=== PATIENT | male | born 1955 | race Caucasian/White ===

== ENCOUNTER 2019-04-05 21:32 | Emergency (ER) | payer BC ==
[~2019-04-05] VITALS: Ht 180.3 cm; Wt 90.7 kg
[2019-04-05 21:35] VITALS: BP 118/78
[2019-04-05] MEDS ORDERED: LIDOCAINE WITH 8.4% SOD BICARB 3 ML DISP.SYRIN. INJ ONE (22:15)
[2019-04-05] MEDS ORDERED: DIPHTH,PERTUSS(ACELL),TET TOX 0.5 ML DISP.SYRIN. VAX IM ONE (22:15)
[2019-04-05] MEDS ORDERED: GELATIN SPONGE SIZE 12-7MM SPONGE. TP ONE (22:15)
[2019-04-05] MEDS ORDERED: HYDROcodone/APAP 5/325MG 1 TAB TABLET PO ONE (22:30)
[2019-04-05] MEDS ORDERED: BUPIVACAINE MPF 0.5% 30 ML VIAL. INJ ONE (22:45)
[2019-04-05] MEDS ORDERED: PIPERACILLIN/TAZOBACTAM 3.375 GM in IV NORMAL SALINE 50ML 50 ML IV ONE (22:45)
[2019-04-06] MEDS ORDERED: CEPH500T PO (00:25)
[2019-04-06] MEDS ORDERED: HYDR-3164 PO (00:25)
--- NOTE | 2019-04-06 00:26 | PHYS DOC ---
Past Medical History Past Medical History: No Pertinent History (MANUELITO AGUILERA APRN) Past Surgical History: Cholecystectomy (MANUELITO AGUILERA APRN) Alcohol Use: None Drug Use: None (MANUELITO AGUILERA APRN) Attending Signature I have participated in the care of this patient and I have reviewed and agree with all pertinent clinical information above including history, exam, and recommendations. (TABATHA SCHMITZ MD) Adult General Chief Complaint Chief Complaint: LACERATION/AVULSION HPI HPI Patient is a 63 year old male who presents with right thumb injury, patient states he was working on his car with a olayinka, he states the olayinka pinched his right thumb. He is right-handed. (MANUELITO AGUILERA APRN) Review of Systems Review of Systems Constitutional: Denies fever or chills [] Musculoskeletal: Reports right thumb injury Integument: Denies rash or skin lesions [] Neurologic: Denies headache, focal weakness or sensory changes [] All other systems were reviewed and found to be within normal limits, except as documented in this note. (MANUELITO AGUILERA APRN) Current Medications Current Medications Current Medications Medications (Trade) Dose Ordered Sig/Claritza Start Time Stop Time Status Last Admin Dose Admin Acetaminophen/ Hydrocodone Bitart (Lortab 5/325) 1 tab 1X ONCE 04/05/19 22:30 04/05/19 22:31 DC 04/05/19 22:44 1 TAB Bupivacaine HCl (Sensorcaine Mpf 0.5%) 30 ml 1X ONCE 04/05/19 22:45 04/05/19 22:46 DC 04/05/19 22:45 30 ML Diphtheria/ Tetanus/Acell Pertussis (Boostrix) 0.5 ml ONCE ONCE 04/05/19 22:15 04/05/19 22:16 DC 04/05/19 22:45 0.5 ML Gelatin (Gelfoam Size 12-7mm) 1 each 1X ONCE 04/05/19 22:15 04/05/19 22:16 DC 04/05/19 22:45 1 EACH Lidocaine HCl (Buffered Lidocaine 1%) 3 ml 1X ONCE 04/05/19 22:15 04/05/19 22:51 DC Piperacillin Sod/ Tazobactam Sod 3.375 gm/Sodium Chloride 50 ml @ 100 mls/hr 1X ONCE 04/05/19 22:45 04/05/19 23:14 DC 04/05/19 22:43 100 MLS/HR (TABATHA SCHMITZ MD) Allergies Allergies Allergies Coded Allergies Type Severity Reaction Last Updated Verified No Known Drug Allergies 04/05/19 No (TABATHA SCHMITZ MD) Physical Exam Physical Exam Constitutional: Well developed, well nourished, no acute distress, non-toxic appearance. [] Skin: Warm, dry, no erythema, no rash. [] Back: No tenderness, no CVA tenderness. [] Extremities: Right thumb with no obvious gross deformity. There is 2 very superficial lacerations on the lateral aspect of the right thumb beside the nail bed, there is another laceration on the right medial thumb distal and beside th e nail bed approximately 1 cm. The nail bed is not disrupted. Adequate radius sensation to the right thumb. +2 right radial pulse. Cap refill less than 2 seconds the right thumb. Neurologic: Alert and oriented X 3, normal motor function, normal sensory function, no focal deficits noted. [] Psychologic: Affect normal, judgement normal, mood normal. [] (MANUELITO AGUILERA APRN) Current Patient Data Vital Signs Vital Signs Date Time Temp Pulse Resp B/P (MAP) Pulse Ox O2 Delivery O2 Flow Rate FiO2 04/05/19 21:35 98.7 60 18 118/78 (91) 98 Room Air 98.7 (TABATHA SCHMITZ MD) EKG EKG [] (MANUELITO AGUILERA APRN) Radiology/Procedures Radiology/Procedures Laceration/Wound Repair Wound Location: Right thumb Wound's Depth, Shape: Horizontal Wound Length (cm): Approximately 1 cm Wound Explored: clean Irrigated w/ Saline (ccs): 500 Betadine Prep?: Yes Anesthesia: Digital block was done with bupivacaine successfully Volume Anesthetic (ccs): 12 Wound Repaired With: Wound was repaired with 2 interrupted sutures using 4. 0 Vicryl, nonstick dressing applied to the wound. (MANUELITO AGUILERA APRN) Course & Med Decision Making Course & Med Decision Making Pertinent Labs and Imaging studies reviewed. (See chart for details) This is a 63-year-old male patient who presents to the ED today with right thumb injury. Right thumb x-rays noted for distal phalanx fracture. This is an open fracture. Patient was given tetanus, Zosyn. There was a laceration on the right medial thumb that was closed by me as noted in procedures. Patient was provided instructions to follow up with hand surgery. Provided prescription for cephalexin and hydrocodone. (MANUELITO AGUILERA APRN) Dragon Disclaimer Dragon Disclaimer This electronic medical record was generated, in whole or in part, using a voice recognition dictation system. (MANUELITO AGUILERA APRN) Departure Departure Impression: Primary Impression: Open fracture of thumb Disposition: HOME, SELF-CARE Condition: STABLE Referrals: ARTURO MANE MD (PCP) Please call referral tomorrow and ask for a referal to a hand surgeon their phone number is [phone] Patient Instructions: Finger Fracture (Phalangeal)-[facility] Additional Instructions: You have right thumb open fracture. Please contact [facility] in the morning [phone] and request a referral to hand surgeon Try to ice and elevate the extremity You can change the dressing in 24 hours Apply Neosporin every 24 hours or bacitracin to the wound Try to ice and elevate the extremity Take the prescribed medicine as needed for pain Complete your antibiotics Scripts Hydrocodone/Apap 5-325 (NORCO 5-325 TABLET) 1 Each Tablet 1 TAB PO Q6HRS, #20 TAB Prov: MANUELITO AGUILERA APRN 04/06/19 Cephalexin (CEPHALEXIN) 500 Mg Tablet 1 TAB PO QID, #40 TAB Prov: MANUELITO AGUILERA APRN 04/06/19 Problem Qualifiers Primary Impression: Open fracture of thumb Encounter type: initial encounter Phalanx: distal Fracture alignment: nondisplaced Laterality: right Qualified Codes: S62.524B - Nondisplaced fracture of distal phalanx of right thumb, initial encounter for open fracture MANUELITO AGUILERA APRN Apr 06, 2019 00:26 TABATHA SCHMITZ MD Apr 06, 2019 04:07
--- NOTE | 2019-04-06 04:31 | RAD ---
EXAM: Right thumb 3 views. HISTORY: Laceration. COMPARISON: None. FINDINGS: There is a comminuted fracture of the first distal phalanx. There is mild volar displacement of the main distal fracture fragment. An overlying nailbed injury is noted. There is no radiopaque foreign body. 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 IMPRESSION: 1. Comminuted, likely open fracture of the first distal phalanx. Electronically signed by: Kuldeep Mcintyre MD (04/06/2019 4:29 AM) [id number]
== END 2019-04-06 00:41 | disposition home or self-care (01) ==
LOC: ER 21:32
DX: S62.524B Nondisplaced fracture of distal phalanx of right thumb, initial encounter for open fracture (principal); W23.0XXA Caught, crushed, jammed, or pinched between moving objects, initial encounter; Y93.89 Activity, other specified; Y92.89 Other specified places as the place of occurrence of the external cause; Y99.8 Other external cause status
CPT/HCPCS: 12001; 73140; 90471; 90715; 96365; 99284; J2543; J3490